=== PATIENT | male | born 2000 | race Caucasian/White ===

== ENCOUNTER 2024-06-07 16:56 | Emergency (ER) | payer SELFPAY ==
[~2024-06-07] VITALS: Ht 170.2 cm; Wt 93.4 kg
[2024-06-07 17:01] VITALS: BP 208/136; PULSE 106; RESP 18; TEMP 97.7; O2SAT 99
[2024-06-07] MEDS: ENALAPRILAT 2.5 MG/2 ML VIAL IVP ONE ×2 (17:33→18:40)
[2024-06-07 19:00] VITALS: BP 167/115; PULSE 74; RESP 16; TEMP 98.1; O2SAT 98
== END 2024-06-07 19:00 | disposition home or self-care (01) ==
LOC: MED 16:56
DX: I10 Essential (primary) hypertension (principal); F12.90 Cannabis use, unspecified, uncomplicated
CPT/HCPCS: 93005; 96374; 96376; 99284; J3490